=== PATIENT | male | born 1975 | race Caucasian/White ===

== ENCOUNTER 2021-09-07 12:53 | Observation (INO) ==
[2021-09-07 13:41] LABS: Basophils # (auto) 0.03 K/uL (0-0.2); Basophils % (auto) 0.4 %; Eosinophils # (auto) 0.15 K/uL (0-0.5); Eosinophils % (auto) 1.9 %; Hematocrit (blood only) 42.8 % (42-52); Hemoglobin 14.2 g/dL (14.0-18.0); Immature Granulocytes # (auto) 0.01 K/uL (0.00-0.02); Immature Granulocytes % (auto) 0.1 %; Lymphocytes # (auto) 1.86 K/uL (1.2-3.4); Mean Corpuscular Hemoglobin 28.7 pg (25-34); Mean Corpuscular Hgb Conc 33.2 g/dL (32-36); Mean Corpuscular Volume 86.6 fL (80-100); Monocytes # (auto) 0.59 K/uL (0.11-0.59); Monocytes % (auto) 7.3 %; Neutrophils # (auto) 5.45 K/uL (1.4-6.5); Neutrophils % (auto) 67.3 %; Platelet Count 269 K/uL (130-400); RDW Coefficient of Variation 14.5 % (11.5-14.5); RDW Standard Deviation 45.8 fL (36.4-46.3); Red Blood Count 4.94 M/uL (4.7-6.1); White Blood Count 8.09 K/uL (4.8-10.8)
[2021-09-07 13:51] LABS: Prothrombin Time 10.3 Seconds (9.0-12.0)
--- NOTE | 2021-09-07 14:02 | Emergency Department Note ---
History of Present Illness General Chief complaint: Shortness of Breath/Dyspnea Stated complaint: SOB, CT SHOWED BLOOD CLOT, DR REFERRED History of Present Illness This patient is a pleasant 46-year-old male who presents emergency department via private vehicle for evaluation of shortness of breath that has been going on for approximately 1 week. He denies any chest pain. No reported recent illnesses. No cough. He denies any hemoptysis. He reports feeling fairly lightheaded with exertion. The patient denies any cardiac history. No history of DVT/PE. He does not smoke. he denies any leg pain or recent long travel. He has not taken anything [id number] for his symptoms. Home Medications Medication Instructions Recorded Confirmed Type calcium carbonate 600 mg-vitamin 3 tab PO DAILY 09/07/21 09/07/21 History D3 5 mcg (200 unit) tablet Allergies Allergy/AdvReac Type Severity Reaction Status Date / Time No Known Allergies Allergy Verified 09/07/21 16:41 Past Med/Surg History Medical History No pertinent past medical history Surgical History No pertinent past surgical history Family History Other Heart disease Social History Smoking Status: Never smoker Second Hand Exposure: No; Do You Dip or Chew Tobacco: No; Hx Alcohol Use: No Hx Substance Use: No Preferred Language: Swiss Communication Ability: Effective Electrician Underground Required: No Beliefs That Will Affect Care: None Current Living Situation: Spouse Feels Safe at Home: Yes Review of Systems A total of 10 systems reviewed and were otherwise negative Physical Exam Vital Signs Vital Signs - 24 hr 09/07/21 13:05 Temperature 36.6 C Temperature Source Temporal Artery Scan Pulse Rate 94 H Pulse Rhythm Regular Pulse Strength Normal Respiratory Rate 20 Respiratory Effort / Characteristics Non-Labored Spontaneous Respiratory Depth Normal Respiratory Pattern Regular Blood Pressure 143/86 H Blood Pressure Mean 105 Blood Pressure Position Sitting Pulse Oximetry 98 Oxygen Delivery Method Room Air Sepsis Recent Fever Within 48 Hours No Sepsis New/Unexplained Change in Mental Status No Sepsis Action Taken by Nursing No Action Required see below Constitutional WD/WN, vitals as above Eyes EOM intact bilaterally ENMT external ear and nose normal, oropharynx normal Neck trachea midline Respiratory normal respiratory effort, lungs clear to auscultation Cardiovascular RRR, no murmur, no edema Gastrointestinal (Abdomen) normal bowel sounds, soft, nontender, no hepatosplenomegaly Musculoskeletal no cyanosis or clubbing, extremities motor strength 5/5 Skin no rashes, warm and dry Neurologic Alert and oriented x3. No focal motor deficits. Psychiatric Acting appropriately Course Course Patient was seen and examined Vital signs including blood pressure were reviewed medications list was verified with patient Labs were obtained, and a saline lock was established And EKG was performed reviewed An order was placed for continuous cardiac monitoring. The monitor shows a rate of 92 with normal sinus rhythm. Outpatient records were reviewed Case was discussed with my supervising physician Upon reevaluation, the patient was resting comfortably. We discussed his results. He voiced understanding, and was comfortable with disposition, likely admission to the hospital for further treatment Heparin bolus and drip were started The case was discussed with my supervising physician in addition to the hospitalist service. They agreed to see the patient for likely inpatient management. Consultations Consultation #1: [facility] Administered Medications Heparin Sodium/Dextrose (Heparin Sodium/Dextrose) 25,000 units in 500 mls @ 40 mls/hr IV .[id number] [facility]; Protocol Stop: 10/07/21 14:59 Last Admin: 09/08/21 06:13 Dose: 2,000 units/hr, 40 mls/hr Documented by: [id number] Cosigned by: [id number] Titration: 09/08/21 06:13 Dose: 0 units/hr, 0 mls/hr Documented by: [id number] Cosigned by: [id number] Titration: 09/08/21 05:23 Dose: 2,000 units/hr, 40 mls/hr Documented by: [id number] Cosigned by: [id number] Titration: 09/07/21 23:01 Dose: 1,900 units/hr, 38 mls/hr Documented by: [id number] Cosigned by: [id number] Admin: 09/07/21 16:04 Dose: 1,700 units/hr, 34 mls/hr Documented by: [id number] Cosigned by: [id number] Multivitamins/Minerals (Calcium 600mg + Vit D 400 Iu Tab) 3 tab PO DAILY [facility] Stop: 10/08/21 08:59 Last Admin: 09/08/21 08:35 Dose: 3 tab Documented by: [id number] Discontinued Medications Heparin Sodium (Porcine) (Heparin Sod (Porcine) 1000 Unit/Ml) 8,000 units IV NOW ONE Stop: 09/07/21 15:46 Last Admin: 09/07/21 16:07 Dose: 8,000 units Documented by: [id number] Cosigned by: [id number] Heparin Sodium (Porcine) (Heparin Sod (Porcine) 1000 Unit/Ml) 4,000 units IV NOW ONE Stop: 09/07/21 23:11 Last Admin: 09/07/21 23:51 Dose: 4,000 units Documented by: [id number] Cosigned by: [id number] Heparin Sodium/Dextrose (Heparin Iv Adult Wt-Based Standard With Bolus Protocol) 1 ea IV NOW STA; Protocol Stop: 09/07/21 14:42 Last Admin: 09/07/21 16:28 Dose: 1 ea Documented by: [id number] Sodium Chloride (Nss) 500 mls @ 80 mls/hr IV .[id number] TIMOTEO Stop: 09/08/21 03:29 Last Infusion: 09/08/21 06:15 Dose: 0 mls/hr Documented by: [id number] Admin: 09/07/21 23:51 Dose: 80 mls/hr Documented by: [id number] Medical Decision Making Medical Records Attestation: I reviewed the patient's medical records. Home Medications Current Medication List: was personally reviewed by me Laboratory Data Attestation: I reviewed the patient's lab results. Result diagrams: 09/08/21 04:51 09/08/21 04:51 Lab Results 09/07/21 09/07/21 09/07/21 Range/Units 13:31 13:31 13:31 WBC 8.09 (4.8-10.8) K/uL RBC 4.94 (4.7-6.1) M/uL Hgb 14.2 (14.0-18.0) g/dL Hct 42.8 (42-52) % MCV 86.6 (80-100) fL MCH 28.7 (25-34) pg MCHC 33.2 (32-36) g/dL RDW Std Deviation 45.8 (36.4-46.3) fL RDW Coeff of Richard 14.5 (11.5-14.5) % Plt Count 269 (130-400) K/uL MPV 9.0 (7.4-10.4) fL Immature Gran % (Auto) 0.1 % Neut % (Auto) 67.3 % Lymph % (Auto) 23.0 % Dougherty % (Auto) 7.3 % Eos % (Auto) 1.9 % Baso % (Auto) 0.4 % Neut # (Auto) 5.45 (1.4-6.5) K/uL Lymph # (Auto) 1.86 (1.2-3.4) K/uL Dougherty # (Auto) 0.59 (0.11-0.59) K/uL Eos # (Auto) 0.15 (0-0.5) K/uL Baso # (Auto) 0.03 (0-0.2) K/uL Immature Gran # (Auto) 0.01 (0.00-0.02) K/uL PT 10.3 (9.0-12.0) Seconds INR 1.0 (0.9-1.1) APTT 25.0 (21.0-31.0) Seconds PTT Ratio 1.0 Sodium 137 (136-145) mmol/L Potassium 4.3 (3.5-5.1) mmol/L Chloride 104 (98-107) mmol/L Carbon Dioxide 25 (21-32) mmol/L Anion Gap 8.0 (3-11) BUN 17 (7-18) mg/dl Creatinine 1.14 (0.6-1.4) mg/dl Est Cr Clr Drug Dosing 107.3 ml/min Est GFR ( Amer) 87.7 ml/min Est GFR (Non-Af Amer) 75.6 ml/min BUN/Creatinine Ratio 15.2 (10-20) Glucose 118 H (70-99) mg/dl Calcium 9.4 (8.5-10.1) mg/dl Magnesium 2.4 (1.8-2.4) mg/dl Total Bilirubin 0.8 (0.2-1) mg/dl AST 16 (15-37) U/L ALT 34 (12-78) Alkaline Phosphatase 90 (45-117) U/L Troponin I 0.017 (0-0.045) ng/ml Total Protein 7.9 (6.4-8.2) gm/dl Albumin 3.6 (3.4-5.0) gm/dl Globulin 4.3 H (2.5-4.0) gm/dl Albumin/Globulin Ratio 0.8 L (0.9-2) SARS-CoV-2, RNA, NAAT (NEGATIVE) 09/07/21 Range/Units 13:31 WBC (4.8-10.8) K/uL RBC (4.7-6.1) M/uL Hgb (14.0-18.0) g/dL Hct (42-52) % MCV (80-100) fL MCH (25-34) pg MCHC (32-36) g/dL RDW Std Deviation (36.4-46.3) fL RDW Coeff of Richard (11.5-14.5) % Plt Count (130-400) K/uL MPV (7.4-10.4) fL Immature Gran % (Auto) % Neut % (Auto) % Lymph % (Auto) % Dougherty % (Auto) % Eos % (Auto) % Baso % (Auto) % Neut # (Auto) (1.4-6.5) K/uL Lymph # (Auto) (1.2-3.4) K/uL Dougherty # (Auto) (0.11-0.59) K/uL Eos # (Auto) (0-0.5) K/uL Baso # (Auto) (0-0.2) K/uL Immature Gran # (Auto) (0.00-0.02) K/uL PT (9.0-12.0) Seconds INR (0.9-1.1) APTT (21.0-31.0) Seconds PTT Ratio Sodium (136-145) mmol/L Potassium (3.5-5.1) mmol/L Chloride (98-107) mmol/L Carbon Dioxide (21-32) mmol/L Anion Gap (3-11) BUN (7-18) mg/dl Creatinine (0.6-1.4) mg/dl Est Cr Clr Drug Dosing ml/min Est GFR ( Amer) ml/min Est GFR (Non-Af Amer) ml/min BUN/Creatinine Ratio (10-20) Glucose (70-99) mg/dl Calcium (8.5-10.1) mg/dl Magnesium (1.8-2.4) mg/dl Total Bilirubin (0.2-1) mg/dl AST (15-37) U/L ALT (12-78) Alkaline Phosphatase (45-117) U/L Troponin I (0-0.045) ng/ml Total Protein (6.4-8.2) gm/dl Albumin (3.4-5.0) gm/dl Globulin (2.5-4.0) gm/dl Albumin/Globulin Ratio (0.9-2) SARS-CoV-2, RNA, NAAT NEGATIVE (NEGATIVE) Imaging Data Attestation: I personally reviewed and interpreted this imaging study as follows: Radiologist's Impression: Chest X-Ray 09/07/21 14:13 XR chest 1V portable CLINICAL HISTORY: SOB TECHNIQUE: Single frontal radiograph of the chest was obtained. Comparison: None available at the time of this dictation. FINDINGS: No lines and tubes are seen. The cardiomediastinal silhouette is normal. The lungs are clear. No evidence of pleural effusion or pneumothorax. IMPRESSION: No acute chest disease. ACT 112: Negative or not required by law. Electronically signed by: Christian Peters M.D. 09/07/2021 2:37 PM ECG Data Attestation: I personally reviewed and interpreted this ECG as follows: Additional Comments: EKG reveals normal sinus rhythm with a rate of [address] elevation or depression noted. QTc 471 MS. No prior for comparison. Blood Pressure Blood Pressure Findings: Elevated blood pressure Blood Pressure Disposition: elevated BP felt to be situational MDM Narrative Differential diagnosis: PE, bronchitis, pneumonia, other infectious etiology, cardiac ischemia, cardiac arrhythmia, among others were considered This patient is a 46-year-old male who presents emergency department with complaints of dyspnea on exertion. He reportedly went to [facility] and had a CT that shows bilateral pulmonary emboli with large embolic burden and right heart strain. Currently, the patient's vital signs are stable. He is otherwise reportedly healthy. Blood work was performed and unremarkable. EKG does not show any signs of ischemia. Troponin was mildly elevated, but still within normal limits. case was discussed with the [employer] hospitalist. It was felt that he likely would benefit from anticoagulation and admission for ongoing monitoring/treatment. Impression & Plan Bilateral pulmonary embolism, MATSON (dyspnea on exertion), Tachycardia Discharge Plan Visit Data Chief Complaint: Shortness of Breath/Dyspnea Stated Complaint: SOB, CT SHOWED BLOOD CLOT, DR REFERRED ED Provider: Yehuda Allison ED Midlevel Provider: Laurie Mills Discharge Problem: Bilateral pulmonary embolism, MATSON (dyspnea on exertion), Tachycardia Patient Disposition: Admitted As Inpatient Condition: Fair Discharge Instructions Interventions: ED Discharge Assessment Last Done: 09/07/21 17:33
[2021-09-07 14:03] LABS: Albumin Level 3.6 gm/dl (3.4-5.0); BUN Creatinine Ratio 15.2 (10-20); Calcium 9.4 mg/dl (8.5-10.1); Creatinine Clr Calc Pharmacy 107.3 ml/min; Est GFR (African American) 87.7 ml/min; Est GFR (Non-African American) 75.6 ml/min; Magnesium 2.4 mg/dl (1.8-2.4); Potassium 4.3 mmol/L (3.5-5.1)
[2021-09-07 14:08] LABS: Albumin Globulin Ratio 0.8 (0.9-2); Bilirubin,Total 0.8 mg/dl (0.2-1); Globulin 4.3 gm/dl (2.5-4.0); Total Protein 7.9 gm/dl (6.4-8.2); Troponin I 0.017 ng/ml (0-0.045)
--- NOTE | 2021-09-07 14:38 | XRay Report ---
XR chest 1V portable CLINICAL HISTORY: SOB TECHNIQUE: Single frontal radiograph of the chest was obtained. Comparison: None available at the time of this dictation. FINDINGS: No lines and tubes are seen. The cardiomediastinal silhouette is normal. The lungs are clear. No evid ence of pleural effusion or pneumothorax. IMPRESSION: No acute chest disease. ACT 112: Negative or not required by law. Electronically signed by: Christian Peters M.D. 09/07/2021 2:37 PM
[2021-09-07] MEDS ORDERED: Heparin IV Adult Wt-Based Standard WITH Bolus Protocol IV STA (14:41)
--- NOTE | 2021-09-07 14:50 | History & Physical Report ---
Date of Service September 07, 2021 Assessment & Plan (1) Bilateral pulmonary embolism: Plan: This is a 46yo M with no known PMH who presents with SOB x 1 week. Endorses a cold about 3 weeks ago that has improved but became progressively short of breath this past week and was found to have bilateral pulmonary emboli with large embolic burden on outpatient CTA chest. CT chest with PE protocol at [facility] today (09/07/21) with bilateral pulmonary emboli with large embolic burden and right heart strain No hypoxia documented. Remains tachycardic in 115-120s In setting of possible underlying malignancy 2D echo ordered for better evaluation of right heart strain Initial troponin negative, no significant ECG findings Started on IV heparin this evening (2) Adrenal mass: Plan: CT chest imaging today with incidental finding of left adrenal/retroperitoneal mass that is concerning for neoplasm - discussed finding with patient Already received contrast dye today. Will give gentle IV fluids overnight, plan for CT abd/pelvis tomorrow based on lab work for better visualization of mass, likely to need outpatient heme onc evaluation DVT Ppx: IV heparin Code status: FULL PCP: no PCP (willing to establish PCP in [place]) Dispo: Observation PCU Patient seen in collaboration with Dr. Castillo. Please see addendum. History of Present Illness Chief Complaint: SOB Primary Care Provider: NO PCP This is a 46yo M with no known PMH who presents with SOB x 1 week. Endorses a cold about 3 weeks ago that has improved but became progressively short of breath this past week. Has been taking natural herbs without improvement. Seen at [facility] this morning and sent to [facility] for CT chest with PE protocol and found to have bilateral pulmonary emboli with large embolic burden and right heart strain. Also with incidental finding of left adrenal/retroperitoneal mass that is concerning for neoplasm. Patient does not receive routine medical care or follow with a PCP. Denies any fever, chills, lightheadedness, confusion, headache, visual changes, chest pain, hemoptysis, wheezing. Did have nausea and 2 episodes of vomiting yesterday after "overdoing it" but has resolved since then. No abdominal pain, dysuria, diarrhea or constipation. Does not take any home medications regularly. Denies any known history of DVT/PE. Denies any unintentional weight loss. Allergies Allergy/AdvReac Type Severity Reaction Status Date / Time No Known Allergies Allergy Verified 09/07/21 16:41 Home Medications Medication Instructions Recorded Confirmed Type calcium carbonate 600 mg-vitamin 3 tab PO DAILY 09/07/21 09/07/21 History D3 5 mcg (200 unit) tablet Past Med/Surg History Medical History (Updated 09/07/21 @ 21:07 by Belia Cabezas PA-C) No pertinent past medical history Surgical History (Updated 09/07/21 @ 21:05 by Belia Cabezas PA-C) No pertinent past surgical history Family History Other Heart disease Social History Smoking Status: Never smoker Second Hand Exposure: No; Do You Dip or Chew Tobacco: No; Hx Alcohol Use: No Hx Substance Use: No Preferred Language: Yi Communication Ability: Effective Ship Washer Required: No Beliefs That Will Affect Care: None Current Living Situation: Spouse Feels Safe at Home: Yes Review of Systems Review of Systems: At least ten systems reviewed and negative except as noted in the HPI. Physical Exam Physical Exam: General Appearance: WD/WN, vitals as above, NAD, sitting up in bed, pleasant, conversing easily Head: normocephalic, atraumatic Eyes: normal inspection, PERRL, conjunctivae normal, anicteric sclerae ENT: external ear and nose normal, oropharynx normal Neck: normal visual inspection, trachea midline, no thyromegaly Respiratory: normal respiratory effort, lungs clear to auscultation, no wheeze, rales, rhonchi. No accessory muscle use Cardiovascular: tachycardic rate, rhythm, no murmur, normal peripheral pulses, no BLE edema. Vessels: no JVD Chest: normal inspection of chest Abdomen/GI: normal bowel sounds, soft, nontender, no hepatosplenomegaly Extremities/Musculoskeletal: no cyanosis or clubbing, extremities motor strength 5/5 Neurologic: PERRL, EOMI, accommodation nl, no face palsy, no dysarthria, CN's II-XI intact bilaterally and moves all extremities Psychiatric: A+Ox3, euthymic affect Skin: no rashes, normal color, warm/dry Results & Data Results & Data ([facility] [place]) Vital Signs (Past 12 Hours) Vital Signs Temp Pulse Resp BP Pulse Ox 09/07/21 13:05 36.6 C 94 H 20 143/86 H 98 Laboratory Results Short CBC 09/07/21 Range/Units 13:31 WBC 8.09 (4.8-10.8) K/uL Hgb 14.2 (14.0-18.0) g/dL Hct 42.8 (42-52) % Plt Count 269 (130-400) K/uL BMP 09/07/21 13:31 Sodium 137 Potassium 4.3 Chloride 104 Carbon Dioxide 25 BUN 17 Creatinine 1.14 Glucose 118 H Calcium 9.4 Cardiac Enzymes 09/07/21 Range/Units 13:31 Troponin I 0.017 (0-0.045) ng/ml Liver Function 09/07/21 Range/Units 13:31 Total Bilirubin 0.8 (0.2-1) mg/dl AST 16 (15-37) U/L ALT 34 (12-78) Alkaline Phosphatase 90 (45-117) U/L Albumin 3.6 (3.4-5.0) gm/dl Diagnostic Findings CT chest PE protocol from [facility] on 09/07/21: FINDINGS MEDIASTINUM AND JERROD: Bilateral hilar adenopathy. Right hilar adenopathy on image 136 of series 8 measures 2.4 x 3.6 cm. HEART: There is no pericardial effusion. Relative flattening of the interventricular septum concerning for right heart strain. LARGE AIRWAYS: Unremarkable LUNGS: Unremarkable PLEURA: There are no pleural effusions. CHEST WALL/SOFT TISSUES: There is no axillary lymphadenopathy. LINES AND DEVICES: None BONES: Degenerative osseous changes. VESSELS: Extensive bilateral pulmonary emboli involving bilateral distal lobar, segmental and subsegmental arteries involving all the lobes. UPPER ABDOMEN: There is a 6.6 x 7.1 cm heterogeneous lesion in the left adrenal area abutting pancreas and left kidney. This also abuts the left renal vein. This is suboptimally evaluated on this study and may represent an adrenal or retroperitoneal mass. Origin from pancreas and left kidney considered less likely. IMPRESSION 1. Bilateral pulmonary emboli with large embolic burden. Right heart strain. 2. Bilateral hilar adenopathy is indeterminate. This may be related to infectious/inflammatory process or metastatic disease. 3. Left adrenal/retroperitoneal mass. This is worrisome for a neoplasm. Code Status & VTE Plan VTE Prophylaxis Plan VTE Prophylaxis will be ordered: Yes
[2021-09-07] MEDS ORDERED: HEPARIN SOD (PORCINE) 1000 UNIT/ML IV ONE ×3 (14:57→23:10)
[2021-09-07] MEDS: HEPARIN SODIUM/DEXTROSE 25,000 UNITS/500 ML BAG IV SCH (16:04)
[2021-09-07] MEDS ORDERED: ACETAMINOPHEN 325 MG TAB PO PRN (16:45)
[2021-09-07] MEDS ORDERED: POLYETHYLENE (MIRALAX) 17 GM PACK PO PRN (16:45)
[2021-09-07] MEDS ORDERED: ONDANSETRON INJ 2 MG/ML 2 ML VIAL IV PRN (16:45)
[2021-09-07] MEDS ORDERED: SODIUM CHLORIDE 0.9% 500 ML IV SCH (21:15)
[2021-09-07 22:34] LABS: Partial Thromboplastin Ratio 1.3; Partial Thromboplastin Time 33.6 Seconds (21.0-31.0)
[2021-09-08 05:00] LABS: Hematocrit (blood only) 42.4 % (42-52); Hemoglobin 13.7 g/dL (14.0-18.0); Mean Corpuscular Hemoglobin 28.5 pg (25-34); Mean Corpuscular Hgb Conc 32.3 g/dL (32-36); Mean Corpuscular Volume 88.1 fL (80-100); Platelet Count 259 K/uL (130-400); RDW Coefficient of Variation 14.5 % (11.5-14.5); RDW Standard Deviation 46.9 fL (36.4-46.3); Red Blood Count 4.81 M/uL (4.7-6.1)
[2021-09-08 05:09] LABS: Partial Thromboplastin Ratio 1.5; Partial Thromboplastin Time 39.1 Seconds (21.0-31.0)
[2021-09-08 05:27] LABS: BUN Creatinine Ratio 13.4 (10-20); Calcium 8.6 mg/dl (8.5-10.1); Creatinine Clr Calc Pharmacy 99.1 ml/min; Potassium 3.9 mmol/L (3.5-5.1)
[2021-09-08] MEDS: HEPARIN SODIUM/DEXTROSE 25,000 UNITS/500 ML BAG IV SCH ×2 (06:13→17:27)
[2021-09-08] MEDS: CALCIUM 600MG + VIT D 400 IU TAB PO SCH (08:35)
[2021-09-08 12:26] LABS: Partial Thromboplastin Ratio 1.3; Partial Thromboplastin Time 35.2 Seconds (21.0-31.0)
[2021-09-08] MEDS ORDERED: HEPARIN SOD (PORCINE) 1000 UNIT/ML IV ONE (13:30)
--- NOTE | 2021-09-08 17:27 | Hospitalist Progress Note ---
Date of Service September 08, 2021 Assessment & Plan (1) Bilateral pulmonary embolism: Plan: 46yo M with no known PMH who presents with SOB x 1 week. Endorses a cold about 3 weeks ago that has improved but became progressively short of breath this past week and was found to have bilateral pulmonary emboli with large embolic burden on outpatient CTA chest. CT chest with PE protocol at [facility] today (09/07/21) with bilateral pulmonary emboli with large embolic burden and right heart strain In setting of possible underlying malignancy 2D echo showing moderate concentric left ventricular hypertrophy, EF of 50 to 55%, moderately dilated right ventricle with mildly reduced right ventricular systolic function and right ventricular systolic pressure of 40 to 50 mmHg. Patient has acute bilateral PE with cor pulmonale Continue oxygen supplementation and wean as tolerated. We will continue IV heparin for the next 24 to 48 hours prior to transition to oral anticoagulation. Patient is interested in Eliquis on discharge. salary manager already provided resources. Will need two step prior to discharge (2) Adrenal mass: Plan: CT chest imaging with incidental finding of left adrenal/retroperitoneal mass We will get CT abdomen pelvis with contrast tomorrow to better assess this. Patient will need outpatient follow-up with oncology on discharge Code status: FULL PCP: no PCP (willing to establish PCP in [place]) Dispo: Inpt Admission and Anticipated Discharge Date Admission Date: September 07, 2021 Subjective 46yo M with no known PMH who presents with SOB x 1 week Being managed for bilateral PE. Patient seen and examined today. Report called feeling better earlier but started having conversational dyspnea. Currently on 2 L/min with oxygen saturation at 92 to 94%. Denies cough, chest pain, dizziness, palpitations Denies any fevers, chills, nausea, vomiting, diarrhea, abdominal pain Physical Exam Constitutional: + well hydrated; no acute distress Eyes: PERRL, conjunctivae normal, anicteric sclerae ENMT: external ear and nose normal, oropharynx normal Respiratory: normal respiratory effort, lungs clear to auscultation Cardiovascular: Rate/Rhythm: regular rate and regular rhythm S1-S2 Gastrointestinal (Abdomen): normal bowel sounds, soft, nontender, no hepatosplenomegaly Musculoskeletal: no cyanosis or clubbing, extremities motor strength 5/5 Neurologic: PERRL, EOMI, accommodation nl, no face palsy, no dysarthria Psychiatric: A+Ox3, euthymic affect Results & Data Results & Data ([facility]) Vital Signs (Past 12 Hours) Vital Signs Temp Pulse Resp BP Pulse Ox 09/08/21 16:00 109 H 14 123/66 92 09/08/21 11:33 36.6 C 96 H 24 148/82 H 93 09/08/21 06:57 36.8 C 84 18 135/79 92 Laboratory Results Abnormal lab results 09/07/21 09/08/21 09/08/21 Range/Units 22:02 04:51 04:51 Hgb 13.7 L (14.0-18.0) g/dL RDW Std Deviation 46.9 H (36.4-46.3) fL APTT 33.6 H (21.0-31.0) Seconds Glucose 146 H (70-99) mg/dl 09/08/21 09/08/21 Range/Units 04:51 11:58 Hgb (14.0-18.0) g/dL RDW Std Deviation (36.4-46.3) fL APTT 39.1 H 35.2 H (21.0-31.0) Seconds Glucose (70-99) mg/dl
[2021-09-08 20:47] LABS: Partial Thromboplastin Ratio 1.5; Partial Thromboplastin Time 40.5 Seconds (21.0-31.0)
[2021-09-09 03:49] LABS: Hematocrit (blood only) 43.2 % (42-52); Mean Corpuscular Hemoglobin 28.6 pg (25-34); Mean Corpuscular Hgb Conc 32.4 g/dL (32-36); Mean Corpuscular Volume 88.3 fL (80-100); Platelet Count 254 K/uL (130-400); RDW Coefficient of Variation 14.4 % (11.5-14.5); RDW Standard Deviation 46.6 fL (36.4-46.3); Red Blood Count 4.89 M/uL (4.7-6.1); White Blood Count 6.53 K/uL (4.8-10.8)
[2021-09-09 04:01] LABS: Partial Thromboplastin Ratio 1.5; Partial Thromboplastin Time 39.1 Seconds (21.0-31.0)
[2021-09-09 04:06] LABS: BUN Creatinine Ratio 11.1 (10-20); Calcium 8.9 mg/dl (8.5-10.1); Creatinine Clr Calc Pharmacy 99.9 ml/min; Est GFR (African American) 80.8 ml/min; Est GFR (Non-African American) 69.7 ml/min; Potassium 3.9 mmol/L (3.5-5.1)
[2021-09-09] MEDS: HEPARIN SODIUM/DEXTROSE 25,000 UNITS/500 ML BAG IV SCH ×3 (04:10→07:00)
--- NOTE | 2021-09-09 06:35 | Electrocardiogram Report ---
Test Reason : Blood Pressure : / mmHG Vent. Rate : 085 BPM Atrial Rate : 085 BPM P-R Int : 140 ms QRS Dur : 074 ms QT Int : 396 ms P-R-T Axes : 057 -11 005 degrees QTc Int : 471 ms Sinus rhythm with Fusion complexes Otherwise normal ECG No previous ECGs available Confirmed by Aakash Colin ([id number]) on 09/09/2021 6:34:51 AM Referred By: Confirmed By:Aakash Colin
[2021-09-09] MEDS: CALCIUM 600MG + VIT D 400 IU TAB PO SCH (07:52)
[2021-09-09] MEDS ORDERED: OPTIRAY 320 100ml IV ONE (10:23)
--- NOTE | 2021-09-09 11:13 | CT Scan Report ---
CT OF THE ABDOMEN AND PELVIS WITH AND WITHOUT CONTRAST ADRENAL PROTOCOL CLINICAL HISTORY: Left adrenal mass. COMPARISON STUDY: Chest CT September 07, 2021. TECHNIQUE: Unenhanced, venous and delayed phase imaging was performed. Intravenous injection of 93 cc Optiray 320 IV was uneventful. Automated exposure control was utilized for the study. A dose loweri ng technique was utilized adhering to the principles of ALARA. CT DOSE: 2399.14 mGycm FINDINGS: Note is made of pulmonary emboli within the lower lungs which are better depicted on chest CT of September 07, 2021. The liver, spleen, right adrenal gland, kidneys and pancreas are unremarkabl e. There is no biliary or pancreatic ductal dilatation. There is no hydronephrosis. No peripancreatic or pericholecystic infiltration is present. Note is made of a enhancing heterogeneous left adrenal m ass which measures 6.8 x 6.7 x 6.4 cm. The solid component of this lesion measures 48 Hounsfield unit s on the unenhanced portion of this exam, 69 Hounsfield units on the venous phase and 64 Hounsfield u nits on the delayed phase. This does not represent significant washout. This contains multiple cystic or necrotic foci. No calcifications or macroscopic fat are identified within this lesion. The calibe r and wall thickness of small and large bowel are normal. There is no evidence for a bowel obstructio n. There is no abdominal or pelvic lymphadenopathy. There is no ascites. Major vasculature is patent. No suspicious lesions are identified within the visualized skeletal structures. IMPRESSION: 1. 6.8 x 6.7 x 6.4 cm heterogeneous enhancing left adrenal mass which contains multiple cystic or nec rotic foci. This contains no macroscopic fat or calcifications. The CT appearance is nonspecific johnson jhoana this is worrisome for a malignant etiology given its size. Primary differential considerations in clude adrenal carcinoma and pheochromocytoma. Atypical appearance of adenoma is considered less likel y but within the differential. A solitary metastasis is also within the differential but considered l ess likely. Surgical consultation is recommended. 2. Pulmonary emboli within the lower lungs which are better depicted on chest CT of September 07, 2021 ACT 112: Negative or not required by law. Electronically signed by: Pedro Luis Finn M.D. 09/09/2021 11:11 AM
[2021-09-09 11:34] LABS: Partial Thromboplastin Ratio 1.8
[2021-09-09 11:39] LABS: Partial Thromboplastin Time 47.3 Seconds (21.0-31.0)
[2021-09-09] MEDS ORDERED: APIXABAN 5 MG TABLET PO ONE (12:06)
--- NOTE | 2021-09-09 14:27 | Discharge Summary ---
Date of Service September 09, 2021 Admission HPI Per Admitting Provider This is a 46yo M with no known PMH who presents with SOB x 1 week. Endorses a cold about 3 weeks ago that has improved but became progressively short of breath this past week. Has been taking natural herbs without improvement. Seen at [facility] this morning and sent to [facility] for CT chest with PE protocol and found to have bilateral pulmonary emboli with large embolic burden and right heart strain. Also with incidental finding of left adrenal/retroperitoneal mass that is concerning for neoplasm. Patient does not receive routine medical care or follow with a PCP. Denies any fever, chills, lightheadedness, confusion, headache, visual changes, chest pain, hemoptysis, wheezing. Did have nausea and 2 episodes of vomiting yesterday after "overdoing it" but has resolved since then. No abdominal pain, dysuria, diarrhea or constipation. Does not take any home medications regularly. Denies any known history of DVT/PE. Denies any unintentional weight loss. Admission Exam Per Admitting Provider General Appearance:WD/WN, vitals as above, NAD, sitting up in bed, pleasant, conversing easily Head: normocephalic, atraumatic Eyes:normal inspection, PERRL, conjunctivae normal, anicteric sclerae ENT: external ear and nose normal, oropharynx normal Neck: normal visual inspection, trachea midline, no thyromegaly Respiratory:normal respiratory effort, lungs clear to auscultation, no wheeze, rales, rhonchi. No accessory muscle use Cardiovascular: tachycardic rate, rhythm, no murmur, normal peripheral pulses, no BLE edema. Vessels: no JVD Chest: normal inspection of chest Abdomen/GI: normal bowel sounds, soft, nontender, no hepatosplenomegaly Extremities/Musculoskeletal: no cyanosis or clubbing, extremities motor strength 5/5 Neurologic: PERRL, EOMI, accommodation nl, no face palsy, no dysarthria, CN's II-XI intact bilaterally and moves all extremities Psychiatric:A+Ox3, euthymic affect Skin: no rashes, normal color, warm/dry Principal Diagnosis Acute Bilateral Pulmonary embolism with right heart strain Left adrenal mass Discharge Exam Constitutional + well hydrated; no acute distress Eyes PERRL, conjunctivae normal, anicteric sclerae ENMT external ear and nose normal, oropharynx normal Respiratory normal respiratory effort, lungs clear to auscultation Cardiovascular Rate/Rhythm: regular rate and regular rhythm S1 S2 Gastrointestinal (Abdomen) normal bowel sounds, soft, nontender, no hepatosplenomegaly Musculoskeletal no cyanosis or clubbing, extremities motor strength 5/5 Neurologic PERRL, EOMI, accommodation nl, no face palsy, no dysarthria Psychiatric A+Ox3, euthymic affect Discharge Data Allergies Allergy/AdvReac Type Severity Reaction Status Date / Time No Known Allergies Allergy Verified 09/07/21 16:41 Consultations 09/07/21 14:41 ED Decision to Admit Stat Ordered Studies 09/09/21 08:55 CT abdomen pelvis wo/w con Urgent Note is made of pulmonary emboli within the lower lungs which are better depicted on chest CT of September 07, 2021. The liver, spleen, right adrenal glan d, kidneys and pancreas are unremarkable. There is no biliary or pancreatic ductal dilatation. There is no hydronephrosis. No peripancreatic or pericholecystic infiltration is present. Note is made of a enhancing heterogeneous left adrenal mass which measures 6.8 x 6.7 x 6.4 cm. The solid component of this lesion measures 48 Hounsfield units on the unenhanced portion of this exam, 69 Hounsfield units on the venous phase and 64 Hounsfield units on the delayed phase. This does not represent significant washout. This contains multiple cystic or necrotic foci. No calcifications or macroscopic fat are identified within this lesion. The caliber and wall thickness of small and large bowel are normal. There is no evidence for a bowel obstruction. There is no abdominal or pelvic lymphadenopathy. There is no ascites. Major vasculature is patent. No suspicious lesions are identified within the visualized skeletal structures. IMPRESSION: 1. 6.8 x 6.7 x 6.4 cm heterogeneous enhancing left adrenal mass which contains multiple cystic or necrotic foci. This contains no macroscopic fat or calcifications. The CT appearance is nonspecific however this is worrisome for a malignant etiology given its size. Primary differential considerations include adrenal carcinoma and pheochromocytoma. Atypical appearance of adenoma is considered less likely but within the differential. A solitary metastasis is also within the differential but considered less likely. Surgical consultation is recommended. 2. Pulmonary emboli within the lower lungs which are better depicted on chest CT of September 07, 2021 Hospital Course (1) Bilateral pulmonary embolism: 46yo M with no known PMH who presents with SOB x 1 week. Endorses a cold about 3 weeks ago that has improved but became progressively short of breath this past week and was found to have bilateral pulmonary emboli with large embolic burden on outpatient CTA chest. CT chest with PE protocol at [facility] today (09/07/21) with bilateral pulmonary emboli with large embolic burden and right heart strain In setting of possible underlying malignancy 2D echo showing moderate concentric left ventricular hypertrophy, EF of 50 to 55%, moderately dilated right ventricle with mildly reduced right ventricular systolic function and right ventricular systolic pressure of 40 to 50 mmHg. Patient has acute bilateral PE with cor pulmonale Was started on IV heparin drip. Provided anticoagulation education He will prefer eliquis. Was transitioned to eliquis today Will need at least 3months of anticoagulation 2 Step did not indicate any oxygen needs (2) Adrenal mass: CT showed left adrenal mass as detailed above This needs further evaluation Oncology office will call patient for appt. Set up with new PCP done I advised him to ensure he keeps his PCP appt next week and if Oncology office hasn't called for appt to ask PCP to facilitate that Total Time Total Time Spent Total Time Spent (In Minutes): 50 Total Time Includes: Examination of the Patient, Discharge Planning and Medication Reconciliation Discharge Plan Discharge Items Patient Disposition: Home - Self-Care Reason For Visit: SOB, CT SHOWED BLOOD CLOT, DR REFERRED Discharge Diagnosis: Bilateral Pulmonary embolism with right heart strain Left adrenal mass Condition on Discharge: Fair Activity: Resume your previous activity Non-emergency contact: Primary Care Provider and Oncologist Call non-emergency contact if: you have any medication questions and your symptoms worsen Follow-up/Referrals: [facility] Oncology/ Hematology [Other] (The [facility] Oncology/ Hematology Office will call you with an appointment.) Bryanna Gramajo MD [Physician] - (Date & Time 09/15/2021 10:40 AM Provider Bryanna Schwartz MD Department [address] [facility] Internal Medicine [facility] ) Diet: Heart Healthy Addtl Attending Provider Instructions: Mr Hawkins. You were admitted to the hospital after outpatient CT scan done for shortness of breath with exertion revealed acute pulmonary embolism (blood clots in the blood vessels of the lungs) with right heart strain. Evaluation also revealed a 6.8x 6.7 x6.4cm left adrenal mass. You were started on anticoagulation (blood thinner) called apixaban (eliquis). Please take 10mg twice a day for next 7 days and then 5mg twice a day afterwa rds. You will need to be on this for at least 3-6 months. You will need to follow up with Oncologist for further evaluation of the mass found. Please ensure you keep the appointment made with your new Primary Doctor. It was a pleasure taking care of you. Pending Studies at Discharge: No Stand-Alone Forms: My [facility] [employer], Smoking Cessation Medications and DC Order Prescriptions: New Eliquis 5 mg Tablet See Rx Instructions .ROUTE .COMPLEX Qty: 74 RF: 0 Continued calcium carbonate-vitamin D3 600 mg-5 mcg (200 unit) Tablet 3 tab PO DAILY RF: 0 Discharge Orders: Discharge Order (Routine); Ordered 09/09/21 Ordered By: Lissette Vail Admission Data Admit Date/Time: 09/07/21 14:47 Attending Provider: Lissette Vail I. Admkatharine Provider: Amairani Castillo Primary Care Provider: PCP,NO Other Providers: Amairani Castillo Other Interventions: Discharge Summary Assessment (RN) Last Done: 09/09/21 14:29
[2021-09-09] MEDS ORDERED: APIXABAN 5 MG TABLET PO SCH (21:00)
--- NOTE | 2021-09-10 07:08 | Electrocardiogram Report ---
Test Reason : Blood Pressure : / mmHG Vent. Rate : 105 BPM Atrial Rate : 105 BPM P-R Int : 140 ms QRS Dur : 078 ms QT Int : 360 ms P-R-T Axes : 068 038 048 degrees QTc Int : 475 ms Sinus tachycardia Otherwise normal ECG When compared with ECG of 07-SEP-2021 13:22, Fusion complexes are no longer Present Confirmed by Aakash Colin ([id number]) on 09/10/2021 7:08:19 AM Referred By: REFERRED SELF Confirmed By:Aakash Colin
== END 2021-09-09 14:50 | disposition home or self-care (01) ==
LOC: ED 12:53 → EDINP 12:53 → SUATTDRO 14:47 → EDINP 17:33
DX: R00.0 Tachycardia, unspecified; R06.00 Dyspnea, unspecified; E27.9 Disorder of adrenal gland, unspecified; I26.99 Other pulmonary embolism without acute cor pulmonale; Z79.899 Other long term (current) drug therapy